=== PATIENT | female | born 1975 ===

== ENCOUNTER 2025-01-16 05:57 | Day surgery (SDC) | payer OTHER ==
[2025-01-16] MEDS ORDERED: DIPHENHYDRAMINE HCL 50 MG/ML VIAL 1ML IV ONE (10:00)
[2025-01-16] MEDS ORDERED: MIDAZOLAM HCL 2 MG/2 ML VIAL IV ONE (10:00)
[2025-01-16] MEDS ORDERED: fentaNYL CITRATE 50 MCG/ML AMPUL IV PUSH ONE (10:00)
== END 2025-01-16 11:55 | disposition home or self-care (01) ==
LOC: AMB-ENDOS 05:57
PROVIDERS: ATTEND Internal Medicine
DX: D12.5 Benign neoplasm of sigmoid colon (principal); K57.30 Diverticulosis of large intestine without perforation or abscess without bleeding; Z88.6 Allergy status to analgesic agent; Z91.013 Allergy to seafood